=== PATIENT | female | born 1945 | race Caucasian/White ===

== ENCOUNTER 2021-09-25 05:52 | Inpatient (IN) | payer MEDICARE, OTHER ==
[2021-09-18 12:27] LABS: BASOPHILS # (AUTO) 0.1 X10'3 (0-0.2); BASOPHILS % (AUTO) 0.6 % (0-1); EOSINOPHILS # (AUTO) 0.1 X10'3 (0-0.9); EOSINOPHILS % (AUTO) 0.5 % (0-6); LYMPHOCYTES # (AUTO) 2.1 X10'3 (1.1-4.8); MEAN CORPUSCULAR HEMOGLOBIN 28.7 PG (27.0-31.0); MEAN CORPUSCULAR HGB CONC 32.6 g/dL (33.0-36.5); MEAN CORPUSCULAR VOLUME 87.9 FL (78-98); MEAN PLATELET VOLUME 8.6 FL (7.4-10.4); MONOCYTES # (AUTO) 0.7 X10'3 (0-0.9); MONOCYTES % (AUTO) 5.5 % (2-12); NEUTROPHILS # (AUTO) 9.7 X10'3 (1.8-7.7); NEUTROPHILS % (AUTO) 76.4 % (42-75); PRE OP HEMATOCRIT 37.8 % (35.0-45.0); PRE OP HEMOGLOBIN 12.3 g/dL (12.0-16.0); PRE OP PLATELET COUNT 303 X10'3 (140-440); RED CELL DISTRIBUTION WIDTH 14.6 % (11.5-14.5)
[2021-09-18 12:45] LABS: ALBUMIN 4.1 G/DL (3.4-5.0); ALBUMIN/GLOBULIN RATIO 1.1 (1.1-1.5); ALKALINE PHOSPHATASE 110 IU/L (46-116); BLOOD UREA NITROGEN 24 MG/DL (7-18); CALCIUM 9.1 MG/DL (8.5-10.1); CHLORIDE 102 MMOL/L (99-107); PRE OP ALT 27 U/L (30-65); PRE OP AST 18 U/L (10-37); PRE OP BILIRUB, TOTAL 0.3 MG/DL (0.0-1.0); PRE OP GLUCOSE 107 MG/DL (70-104); PRE OP POTASSIUM 3.8 MMOL/L (3.4-5.1); PRE OP SODIUM 140 MMOL/L (135-145)
[2021-09-18 12:51] LABS: BUN/CREATININE RATIO 28.6 (6.6-38.0); CREATININE 0.84 MG/DL (0.40-0.90); PRE OP ANION GAP 10 (8-16); TOTAL CARBON DIOXIDE 27.9 MMOL/L (24-32); eGFR 66 ML/MIN
[~2021-09-25] VITALS: Ht 162.6 cm; Wt 98.5 kg
[2021-09-25] VITALS (17 sets, daily range): BP systolic 116–152; BP diastolic 44–81
[~2021-09-25 05:52] MED LIST: DONE10TA7 PO; GABA300C PO; GINK30CA3 PO; HYDR25TA5 PO; LOSA25TA96 PO; MEMA5TAB PO; MULT-1085 PO; NAPR220T67 PO; OMEP10CA5 PO; PEPTIVA PO; SIMV-42 PO; cefazolin/dext.iso 2gm/50ml IV ONE; famotidine 20mg tablet PO ONE; ringers solution, lacted 1,000 ML IV SCH; tranexamic acid 650mg tablet PO ONE; vancomycin 1,500 MG in NS 300ml IV soln IV ONE
[2021-09-25] MEDS ORDERED: ketorolac trometh. 30mg/ml inj. ONE ×2 (06:40→13:28)
[2021-09-25] MEDS ORDERED: ROPIVAcaine 0.5% (5mg/ml) 30ml vial ONE ×3 (06:41→15:29)
[2021-09-25] MEDS ORDERED: mineral oil 10ml sterile, topical TP ONE ×2 (06:41→13:32)
--- NOTE | 2021-09-25 09:30 | NUR ---
PT HAS GOOD CSM TO RIGHT LEG, COMPLETED PRE-OP SHOWERS AND OINTMENT REQUESTED, FAMILY DID VIEW JOINT DVD
[2021-09-25] MEDS ORDERED: cloNIDine hcl/PF 100mcg/ml inj ONE (14:13)
[2021-09-25] MEDS ORDERED: tetracaine 1% (10mg/ml) pres. free inj. ONE (14:38)
[2021-09-25] MEDS ORDERED: midazolam 1 mg/ML 2ml injection ONE (14:39)
[2021-09-25] MEDS ORDERED: dexamethasone sod phosphate 4mg/ml inj. ONE (15:29)
[2021-09-25] MEDS ORDERED: 0.9 % SODIUM CHLORIDE 10 ML VIAL ONE ×3 (15:29)
[2021-09-25] MEDS ORDERED: propofol inj 20 ML IV ONE ×2 (15:29)
[2021-09-25] MEDS ORDERED: fentaNYL /PF 50mcg/ml 5ml ampule ONE (15:29)
[2021-09-25] MEDS ORDERED: ePHEDrine 50MG/ML INJ. ONE (15:29)
[2021-09-25] MEDS ORDERED: naproxen sodium 220mg tablet PO PRN (16:45)
[2021-09-25] MEDS ORDERED: HYDROcodone/acetaminophen 10/325mg tab PO PRN (16:45)
[2021-09-25] MEDS ORDERED: HYDROmorphone inj. 0.5 MG/0.5 ML DISP.SYRIN IV PRN (16:45)
[2021-09-25] MEDS ORDERED: HYDROmorphone 1 mg/ml syringe IV PRN (16:45)
[2021-09-25] MEDS ORDERED: magnesium hydroxide 30ml (MOM) UD suspension PO PRN (16:45)
[2021-09-25] MEDS ORDERED: oxyCODONE IR 5mg (immed. release) tablet PO PRN ×2 (16:45)
[2021-09-25] MEDS ORDERED: ondansetron/PF 4mg/2ml inj IV PRN ×2 (16:45→16:50)
[2021-09-25] MEDS ORDERED: acetaminophen 325mg tablet PO PRN (16:45)
[2021-09-25] MEDS ORDERED: diphenhydrAMINE 25mg capsule PO PRN ×2 (16:45)
[2021-09-25] MEDS ORDERED: bisacodyl 10mg suppository rectal RC PRN (16:45)
--- NOTE | 2021-09-25 16:49 | NUR ---
Received from OR via BED , accompanied by Anesthesiologist DR ANTUNEZ and report given by Anesthesiolgist. VSS. 20G IN LEFT HAND. F/C. BANDAGE,WRAP, AND POWDER PACK ON RIGHT KNEE. PATIENT STATES NO PAIN. ACCUCHECK 103 @ 8270. ON ROOM AIR AT 98%. Addendum: 09/25/21 at 1707 by Vivi Stone RN Amended: Links added.
[2021-09-25] MEDS ORDERED: morphine 4 MG/ML inj SYRINge IV PRN (16:50)
[2021-09-25] MEDS ORDERED: meperidine/PF 25mg/ml syringe IV PRN ×3 (16:50)
[2021-09-25] MEDS ORDERED: ringers solution, lacted 1,000 ML IV SCH (16:50)
[2021-09-25] MEDS ORDERED: hydrALAZINE 20mg/ml inj. IV PRN (16:50)
[2021-09-25] MEDS ORDERED: morphine 2 MG/ML inj. syringe IV PRN (16:50)
[2021-09-25] MEDS ORDERED: acetaminophen 1,000mg/100ml IV 100 ML IV PRN (16:50)
[2021-09-25] MEDS ORDERED: proCHLORperazine 10 MG/2 ml inj IV PRN (16:50)
[2021-09-25] MEDS ORDERED: labetalol 20mg/4ml (5mg/ml) syringe IV PRN (16:50)
--- NOTE | 2021-09-25 17:39 | NUR ---
PATIENT MEETS DISCHARGE CRITERIA. VSS. ON ROOM AIR AR 97%. STATES NO PAIN. GAVE REPORT TO SURGICAL NURSE AND TRANSFERRED PATIENT. RECEIVING NURSE AT BEDSIDE, KATHRINE TEJEDA, BED LOWERED, LOCKED, AND CALL LIGHT GIVEN TO PATIENT. TECH STARTED V/S AND PATIENTS FAMILY WAS AT THE DOOR. Addendum: 09/25/21 at 1753 by Vivi Stone RN Amended: Links added.
--- NOTE | 2021-09-25 18:39 | NUR ---
Problems reprioritized. Patient report given, questions answered & plan of care reviewed with NIKHIL LARA.
--- NOTE | 2021-09-25 18:40 | NUR ---
Patient in room [facility]. I have received report from ALEXIS TEJEDA and had the opportunity to ask questions and assume patient care.
[2021-09-25] MEDS ORDERED: vancomycin/NS 1 GM ADD-VANTAGE 250 ML IV SCH (20:00)
[2021-09-25] MEDS: potassium cl 20mEq in 1/2 NS 1,000 ML IV SCH (20:08)
[2021-09-25] MEDS: memantine 5mg tablet PO SCH (20:09)
[2021-09-25] MEDS: acetaminophen 325mg tablet PO SCH (20:09)
[2021-09-25] MEDS ORDERED: sennosides 8.6mg tablet PO SCH (21:00)
[2021-09-25] MEDS ORDERED: GINKGO BILOBA LEAF EXTRACT 60 MG PO SCH (21:00)
[2021-09-25] MEDS ORDERED: lactobacillus rhamnosus 10,000 MMU CELLS/CAPSULE PO SCH (21:00)
[2021-09-26] MEDS: ceFAZolin/D5W- 1GM premix 50 ML IV SCH ×2 (00:19→09:49)
[2021-09-26] MEDS: gabapentin 300mg capsule PO SCH ×2 (00:19→09:47)
[2021-09-26] MEDS: potassium cl 20mEq in 1/2 NS 1,000 ML IV SCH ×2 (00:45→09:52)
[2021-09-26] MEDS: acetaminophen 325mg tablet PO SCH ×3 (02:18→14:30)
[2021-09-26 04:00] VITALS: BP 148/60
--- NOTE | 2021-09-26 05:00 | NUR ---
0020;PT FOUND BY THE DOOR WITH KING BAG IN HAND. BLOOD IN LEFT HAND FROM IV SITE.PT APPEARED CONFUSED BUT EASILY RE-DIRECTABLE,PT STATED THAT SHE WAS GOING TO THE BR TO URINATE.PT WAS ASSISTED BACK TO BED ;NEW IV STARTED AND FLUID INFISION RESUMED.PT C/O 7/10 PAIN IN RIGHT KNEE AND WAS OFFERED PRN OXYCODONE WHICH SHE DECLINED IN PREFERENCE FOR DILAUDID.0.5 OF DIALUIDID IVP ADMINISTERED AND PT GOT SOME RELIEF .PT GOT UP AGAIN AT 0500 AND WAS FOUND AT THE FOOT OF BED HEADING TO THE BR.PT REDIRECTED AGAIN ,BACK TO BED AND FC DC'D. PT C/O PAIN RATED 7/10 AND WAS ADMINISTERED DILAUDID 1MG IVP.PT IS RESTING COMFORTABLY IN NAD.WILL CONTINUE TO MONITOR.
[2021-09-26 06:42] LABS: BASOPHILS % (AUTO) 0.2 % (0-1); EOSINOPHILS % (AUTO) 0 % (0-6); HEMATOCRIT 29.5 % (35.0-45.0); HEMOGLOBIN 9.5 g/dl (12.0-16.0); LYMPHOCYTES # (AUTO) 1.3 X10'3 (1.1-4.8); LYMPHOCYTES % (AUTO) 8.4 % (21-51); MEAN CORPUSCULAR HEMOGLOBIN 28.7 PG (27.0-31.0); MEAN CORPUSCULAR VOLUME 89.8 FL (78-98); MEAN PLATELET VOLUME 8.6 FL (7.4-10.4); MONOCYTES # (AUTO) 0.9 X10'3 (0-0.9); MONOCYTES % (AUTO) 5.9 % (2-12); NEUTROPHILS # (AUTO) 12.9 X10'3 (1.8-7.7); NEUTROPHILS % (AUTO) 85.5 % (42-75); PLATELET COUNT 233 X10'3 (140-440); RED BLOOD COUNT 3.29 X10'6 (4.20-5.60); RED CELL DISTRIBUTION WIDTH 14.8 % (11.5-14.5); WHITE BLOOD COUNT 15.1 X10'3 (4.5-11.0)
[2021-09-26 07:12] LABS: ANION GAP 10 (8-16); CHLORIDE 107 MMOL/L (99-107); POTASSIUM 4.6 MMOL/L (3.5-5.1); SODIUM 140 MMOL/L (135-145); TOTAL CARBON DIOXIDE 23.1 MMOL/L (24-32)
[2021-09-26] MEDS ORDERED: pantoprazole 40mg Tablet.DR PO SCH (07:30)
[2021-09-26 07:31] VITALS: BP 136/59
[2021-09-26] MEDS ORDERED: multivitamins, therapeutics tablet PO SCH (08:00)
[2021-09-26] MEDS ORDERED: donepezil 5mg tablet PO SCH (08:00)
[2021-09-26] MEDS ORDERED: losartan 50mg tablet PO SCH (08:00)
[2021-09-26] MEDS ORDERED: atorvastatin 10mg tablet PO SCH (08:00)
[2021-09-26] MEDS ORDERED: HYDROchlorothiazide 25mg tablet PO SCH (08:00)
[2021-09-26] MEDS ORDERED: aspirin 325mg tablet PO SCH (08:30)
[2021-09-26] MEDS: memantine 5mg tablet PO SCH (09:48)
--- NOTE | 2021-09-26 11:48 | NUR ---
Joint surgery consult: Pt s/p R knee surgery this admit. Noted pt hx dementia per EMR; written high protein ed w/ RD contact information placed in pt chart. Addendum: 09/26/21 at [address] Amended: Links added.
[2021-09-26 12:20] VITALS: BP 117/43
[2021-09-26 12:22] VITALS: BP 81/57
--- NOTE | 2021-09-26 13:04 | NUR ---
Pt. unable to walk independently w/ DME. unable to get out of bed w/o cues and assistance. Great fall risk in bathroom as pt. does not use grab bars correctly and has poor ergonomics when trying to sit down or get up from toilet. Pt. required 1 person moderate assist to rise from toilet. Pt. will need toilet riser or bedside commode. CM contacted. Insurance will not cover bedside commode. Riser available here. Home health and PT can be ordered for pt. on discharge. CM recommends PT come train pt. Paged PT to come talk to family.
--- NOTE | 2021-09-26 16:00 | NUR ---
DISCHARGE NOTE: Reviewed discharge paperwork extensively with pt. and . Education also provided to daughterSharon. PT. came to instruct family on how to work with mother on using walker, getting up and down from toilet, and putting weight on affected leg. Pt. seems to be improving cognitively just today, and improving with ambulation. Daughter has gone to medical store to buy bedside commode and a shorter walker since walker delivered last week to pt's home was too tall. Pt. instructed to return non-fitted walker back to [employer] office to get reimbursed. Pt voiding well. Able to give good verbal feedback on s/sx infection. Given written and verbal instructions on incisional care, hand hygiene, showering instructions, and reasons to notify MD. She is aware to take ASA for 4 weeks and not to take her home medication Aleve while doing so. IV DC'd, cannula intact, no s/sx bleeding noted, pressure bandage applied. Pt. and instructed on diet, possible ASE of pain medications, exercise, and IS use. Pt. and had the opportunity to ask questions, and did so. They already have contact information for [employer] and a follow up javier. in 2 weeks. Gathered up pt. belongings, escorted by staff downstairs. Daughter has called her work already and can take a week off of work to stay at home and help rehabilitate mother with at home 20/01 as well.
[2021-09-27] MEDS ORDERED: acetaminophen 325mg tablet PO PRN (16:45)
== END 2021-09-26 16:36 | disposition home health service (06) | DRG 470 ==
LOC: PAS 05:52 → EDSTATUS 08:45 → SUR 3N 16:47
PROVIDERS: ADMIT Orthopaedic Surgery; ATTEND Orthopaedic Surgery
PROC: 8E0Y0CZ Robotic Assisted Procedure of Lower Extremity, Open Approach (ICD-10-PCS; 2021-09-25)
PROC: 8E0YXBZ Computer Assisted Procedure of Lower Extremity (ICD-10-PCS; 2021-09-25)
PROC: 0SRC0J9 Replacement of Right Knee Joint with Synthetic Substitute, Cemented, Open Approach (ICD-10-PCS; principal; 2021-09-25 14:32)
DX: M17.11 Unilateral primary osteoarthritis, right knee (principal); M21.161 Varus deformity, not elsewhere classified, right knee; F03.90 Unspecified dementia, unspecified severity, without behavioral disturbance, psychotic disturbance, mood disturbance, and anxiety; G62.9 Polyneuropathy, unspecified; I10 Essential (primary) hypertension; Z20.822 Contact with and (suspected) exposure to COVID-19; G47.33 Obstructive sleep apnea (adult) (pediatric); E66.9 Obesity, unspecified; Z80.8 Family history of malignant neoplasm of other organs or systems; Z68.37 Body mass index [BMI] 37.0-37.9, adult
CPT/HCPCS: 36415; 80051; 80053; 82948; 85025; 87081; 97110; 97116; 97161; 97530; 97535; A4215; A7000; C1713; C1758; C1776; G0378; J0690; J0735; J1100; J1170; J1885; J2250; J2704; J2795; J3010; J3370; J3480; J3490; J7040; J7120; Q0163; U0003; U0005

== ENCOUNTER 2022-12-26 19:22 | Emergency (ER) | payer MEDICARE, OTHER ==
[~2022-12-26] VITALS: Ht 165.1 cm; Wt 90.2 kg
[~2022-12-26 19:22] MED LIST changes: +DONE10TA19 PO; -DONE10TA7 PO; -NAPR220T67 PO; -cefazolin/dext.iso 2gm/50ml IV ONE; -famotidine 20mg tablet PO ONE; -ringers solution, lacted 1,000 ML IV SCH; -tranexamic acid 650mg tablet PO ONE; -vancomycin 1,500 MG in NS 300ml IV soln IV ONE
[2022-12-26 19:28] VITALS: BP 205/78
[2022-12-26] MEDS ORDERED: TETanus/Pertussis (Acell)/Diphther VAC/PF (Tdap-Adult) 0.5ml syringe IMVAC ONE (19:50)
[2022-12-26] MEDS ORDERED: LIDOcaine 1% W/epiNEPHrine 1:100,000 20ml vial IJ ONE (19:50)
[2022-12-26] MEDS ORDERED: AMOX-115 PO (20:33)
--- NOTE | 2022-12-26 20:45 | NUR ---
DOG BITE FORM FAXED TO [facility].
== END 2022-12-26 21:08 | disposition home or self-care (01) ==
LOC: ER 19:23
DX: S51.811A Laceration without foreign body of right forearm, initial encounter (principal); W54.0XXA Bitten by dog, initial encounter; Y93.89 Activity, other specified; Y92.89 Other specified places as the place of occurrence of the external cause; Y99.8 Other external cause status
CPT/HCPCS: 12002; 29505; 90471; 90715; 99283; 99284; A6258; A6449

== ENCOUNTER 2023-09-08 03:06 | Emergency (ER) | payer MEDICARE, OTHER ==
[~2023-09-08] VITALS: Ht 165.1 cm; Wt 90.6 kg
[~2023-09-08 03:06] MED LIST changes: +LOSA-415 PO; -LOSA25TA96 PO
[2023-09-08 05:20] VITALS: BP 195/86; PULSE 60; RESP 16; TEMP 97.6; O2SAT 100
== END 2023-09-08 05:26 | disposition home or self-care (01) ==
LOC: ER 03:06
DX: S01.01XA Laceration without foreign body of scalp, initial encounter (principal); S09.90XA Unspecified injury of head, initial encounter; W06.XXXA Fall from bed, initial encounter; Y93.84 Activity, sleeping; Y92.098 Other place in other non-institutional residence as the place of occurrence of the external cause; Y99.8 Other external cause status
CPT/HCPCS: 12001; 70450; 99284; J7030; A4615; A6446; A6449

== ENCOUNTER 2025-01-17 13:09 | Emergency (ER) | payer OTHER ==
[~2025-01-17] VITALS: Ht 162.6 cm; Wt 96.9 kg
[2025-01-17 13:12] VITALS: BP 139/61; PULSE 62; RESP 16; O2SAT 95
--- NOTE | 2025-01-17 14:09 | Physician Documentation ---
History of Present Illness ~ Chief Complaint: Ingestion Error Stated Complaint: DOUBLE DOSE OF MEDICATION Time Seen by MD: 13:31 Primary Medical Doctor: [facility] Patient is seen today with daughter with complaints of accidentally getting a double dose of medications this morning by about 3 hours. Patient denies any lightheadedness or chest pain or shortness of breath or abdominal pain or nausea, vomiting, diarrhea. Patient has no new or other concern or complaint at this time. Patient got a double dose of amlodipine 5 mg and hydrochlorothiazide 25 mg and gabapentin 300 mg. Medication Reconciliation Allergies: Coded Allergies: prednisone (Unverified Allergy, Unknown, 01/17/25) Scheduled Donepezil HCl (Aricept), 1 TAB PO DAILY, (Reported) Gabapentin (Neurontin), 2 CAP PO Q8H, (Reported) Ginkgo Biloba Dutton Extract (Ginkgo Biloba), 60 MG PO HS, (Reported) Hydrochlorothiazide (Hydrochlorothiazide), 1 TAB PO DAILY, (Reported) Losartan Potassium* (Cozaar*), 100 MG PO DAILY, (Reported) Memantine Hcl* (Namenda*), 10 MG PO BID, (Reported) Multivitamin (Multi Vitamin Daily), 1 EACH PO DAILY, (Reported) Omeprazole (Omeprazole), 1 CAP PO DAILY, (Reported) Simvastatin* (Zocor*), 1 TAB PO HS, (Reported) [Peptiva], 1 TAB PO HS, (Reported) Past Medical History Past Medical History: No Pertinent History Past Surgical History: noncontributory Lives with: Family Lives In: Home Review of Systems Constitutional: Denies: chills, fever, weakness Eyes: Denies: pain, blurred vision ENT: Denies: ear pain, nose pain, throat pain, mouth pain Respiratory: Denies: cough, shortness of breath Cardiovascular: Denies: chest pain, palpitations Gastrointestinal: Denies: abdominal pain, nausea, vomiting Genitourinary: Denies: burning, dysuria Female Genitalia: Denies: vaginal discharge, pelvic pain Neurological: Denies: headache, dizziness Musculoskeletal: Denies: pain, swelling Integumentary: Denies: rash, lesions Allergic/Immunologic: Denies: hives, itching Hematologic/Lymphatic: Denies: no symptoms reported Psychiatric: Denies: depression, anxiety Physical Exam Vital Signs: Temperature: 98.9, Source: Temporal, Heart Rate: 62, Respiratory Rate: 16, BP: 139/61, Pulse Oximetry: 95, Weight: 96.900 Oxygen Flow Rate: 0 Physical Exam General: Awake and Alert, no acute distress. HEENT: Conjunctiva pink, Sclera clear, Mucus Membranes moist. Neck: Supple without masses and tenderness. Resp: Unlabored. Lungs clear to auscultation bilaterally. Heart: Regular Rate and rhythm, normal S1 and S2 without murmur, rub or gallop. Abdomen: Soft and non tender no organomegaly Extremities: No cyanosis,clubbing or edema. Skin: Warm and Dry. Progress Results/Orders Results/Orders Vital Signs 01/17/25 13:12 Temp 98.9 Pulse 62 Resp 16 B/P (MAP) 139/61 Pulse Ox 95 O2 Flow Rate 0 Medical Decision Making Findings Patient is seen today with daughter with complaints of accidentally getting a double dose of medications this morning by about 3 hours. Patient denies any lightheadedness or chest pain or shortness of breath or abdominal pain or nausea, vomiting, diarrhea. Patient has no new or other concern or complaint at this time. Patient got a double dose of amlodipine 5 mg and hydrochlorothiazide 25 mg and gabapentin 300 mg. Patient vital signs are very stable in the ED today and patient is completely asymptomatic. Patient will continue to monitor vital signs closely twice an hour for the next 4-6 hours. Patient will follow up with primary care in 1-3 days if no better as needed sooner. Return to ED with any worsening, concerning or changing symptoms. Departure Disposition: HOME / SELF CARE / HOMELESS Impression: Primary Impression: Accidental medication error Qualified Codes: T50.901A - Poisoning by unspecified drugs, medicaments and biological substances, accidental (unintentional), initial encounter Condition: Improved Additional Instructions: Patient vital signs are very stable in the ED today and patient is completely asymptomatic. Patient will continue to monitor vital signs closely twice an hour for the next 4-6 hours. Patient will follow up with primary care in 1-3 days if no better as needed sooner. Return to ED with any worsening, concerning or changing symptoms. Referrals: NO PRIMARY CARE PROVIDER (PCP) Signature Scribe Signature: No scribe Attestation: No scribe LISA MICHAEL PAC Jan 17, 2025 14:09
[2025-01-17 14:23] VITALS: TEMP 98.9
== END 2025-01-17 14:25 | disposition home or self-care (01) ==
LOC: ER 13:10
DX: R42 Dizziness and giddiness (principal); T46.1X5A Adverse effect of calcium-channel blockers, initial encounter; Z88.8 Allergy status to other drugs, medicaments and biological substances; Z79.899 Other long term (current) drug therapy; Y92.89 Other specified places as the place of occurrence of the external cause
CPT/HCPCS: 99282